=== PATIENT | female | born 1965 | race African-American/Black ===

== ENCOUNTER 2021-02-12 18:24 | Emergency (ER) | payer OTHER ==
[~2021-02-12] VITALS: Ht 157.5 cm; Wt 61.1 kg
[2021-02-12 19:17] LABS: BASOPHILS % (AUTO) 1 % (0-1); EOSINOPHILS % (AUTO) 1 % (1-7); LYMPHOCYTES % (AUTO) 37 % (22-44); MEAN CORPUSCULAR HEMOGLOBIN 31.4 pg (27.0-34.8); MEAN CORPUSCULAR HGB CONC 33.3 g/dL (32.4-35.8); MEAN PLATELET VOLUME 7.1 fL (7.4-10.4); MONOCYTES % (AUTO) 6 % (2-9); NEUTROPHILS % (AUTO) 55 % (42-75); PLATELET COUNT 297 x10^3/uL (130-400); RED BLOOD COUNT 4.12 x10^6/uL (3.82-5.3)
[2021-02-12 19:28] LABS: ALBUMIN 3.9 g/dL (3.4-5.0); ANION GAP 4 mmol/L (5-15); CALCIUM 8.7 mg/dL (8.5-10.1); CHLORIDE 108 mmol/L (98-107); CREATININE 0.89 mg/dL (0.55-1.02)
[2021-02-12 19:32] LABS: TROPONIN I < 0.015 ng/mL (0.000-0.045)
[2021-02-12] MEDS ORDERED: ACETAMINOPHEN 500 MG TABLET PO ONE (21:00)
[2021-02-12] MEDS ORDERED: METHOCARBAMOL 750 MG TABLET PO ONE (21:00)
[2021-02-12] MEDS ORDERED: ACETAMINOPHEN 500 MG TABLET ONE (21:01)
[2021-02-12] MEDS ORDERED: METHOCARBAMOL 750 MG TABLET ONE (21:01)
[2021-02-12 21:18] VITALS: BP 126/80
== END 2021-02-12 21:19 | disposition home or self-care (01) ==
LOC: ED 19:00
DX: R07.89 Other chest pain (principal); I10 Essential (primary) hypertension; R94.31 Abnormal electrocardiogram [ECG] [EKG]
CPT/HCPCS: 36415; 71046; 80048; 82040; 84484; 85025; 93005; 99285